=== PATIENT | male | born 1985 | race Hispanic/Latino ===

== ENCOUNTER 2018-01-10 14:46 | Emergency (ER) | payer BC, SELFPAY ==
--- NOTE | 2018-01-10 16:19 | RAD ---
LEFT FOOT THREE VIEWS: 01/10/18 HISTORY: 32-year-old male with history of left foot pain primarily at the great toe. No evidence for acute fracture or dislocation. IMPRESSION: Unremarkable left foot. POS: C
== END 2018-01-10 15:48 | disposition home or self-care (01) ==
LOC: ERS 14:46
DX: M10.9 Gout, unspecified (principal); F17.210 Nicotine dependence, cigarettes, uncomplicated

== ENCOUNTER 2018-09-11 16:39 | Emergency (ER) | payer SELFPAY ==
[2018-09-11] MEDS ORDERED: Ketorolac Tromethamine 30 MG/ML VIAL ONE (16:59)
--- NOTE | 2018-09-11 17:11 | RAD ---
Radiograph right ankle 3 views: 09/11/2018 HISTORY: 33-year-old male with acute, traumatic right ankle pain FINDINGS: Mild DJD. Ankle mortise is congruent. No subluxation or fracture. IMPRESSION: No fracture.
== END 2018-09-11 17:32 | disposition home or self-care (01) ==
LOC: ERS 16:39
DX: S93.401A Sprain of unspecified ligament of right ankle, initial encounter (principal); F17.210 Nicotine dependence, cigarettes, uncomplicated; X58.XXXA Exposure to other specified factors, initial encounter
CPT/HCPCS: 96372; J1885

== ENCOUNTER 2021-02-24 00:46 | Emergency (ER) | payer OTHER, SELFPAY ==
[2021-02-24] MEDS ORDERED: Ketorolac Tromethamine 30 MG/ML VIAL ONE (01:22)
[2021-02-24] MEDS ORDERED: HYDROcodone/Acetaminophen 5/325 mg Tablet ONE (01:49)
== END 2021-02-24 01:47 | disposition home or self-care (01) ==
LOC: ERS 00:46
DX: K05.6 Periodontal disease, unspecified (principal); I10 Essential (primary) hypertension; F17.210 Nicotine dependence, cigarettes, uncomplicated; Z79.899 Other long term (current) drug therapy
CPT/HCPCS: 96372; 99282; J1885

== ENCOUNTER 2024-05-20 19:54 | Emergency (ER) | payer OTHER ==
[2024-05-20] MEDS ORDERED: HYDROcodone/Acetaminophen 10/325 mg Tablet ONE (21:20)
== END 2024-05-20 21:30 | disposition home or self-care (01) ==
LOC: ERS 19:54
DX: M25.461 Effusion, right knee (principal); I10 Essential (primary) hypertension; F17.210 Nicotine dependence, cigarettes, uncomplicated
CPT/HCPCS: 99283